=== PATIENT | male | born 1960 | race Caucasian/White ===

== ENCOUNTER 2018-05-09 16:56 | Emergency (ER) | payer MEDICARE ==
[2018-05-09 18:01] LABS: BASO % 0.4 % (0-6); GRAN % 68.4 % (47-80); HEMATOCRIT 47.2 % (42.0-52.0); HEMOGLOBIN 15.2 gm/dl (14.0-18.0); LYMPH % 22.3 % (16-45); MEAN CELL VOLUME 98.3 fl (81-97); MEAN CORPUSCULAR HEMOGLOBIN 31.7 pg (27-33); MEAN CORPUSCULAR HGB CONC 32.2 g/dl (32-36); MEAN PLATELET VOLUME 9.4 fl (7.4-10.4); MONO % 5.9 % (0-9); PLATELET COUNT 288 K/uL (130-400); RED CELL DISTRIBUTION WIDTH 13.6 % (11.5-14.5); WHITE BLOOD COUNT W/O DIFF 11.3 K/uL (4.2-12.2)
--- NOTE | 2018-05-09 18:04 | Emergency Department Record ---
History of Present Illness - General Chief Complaint: Neck Injury/Pain Stated Complaint: L SIDE NECK/HEAD PAIN Time Seen by Provider: 05/09/18 17:32 Source: Patient Mode of Arrival: Ambulatory Limitations: No limitations - History of Present Illness Initial Comments: The patient is here due to L posterior neck pain for about a month. The pain is intermittent and radiates over the top of his head at times. Twisting his head to the R exactly reproduces the pain. There is no arm or leg numbness, weakness , visual changes, difficulty swallowing or balance issues. The patient also had a brief feeling of "warm" across his chest just after dinner. It lasted possibly 1-2 minutes and was not associated with SOB, SABINE, sweating or nausea. Additionally the patient has had tingling to his hands and feet for years but has not seen his PCP for it. MD Complaint: Neck pain Onset/Timin -: Month(s) Place: Home Radiation: Other Severity: Moderate, Intermittent Severity scale (1-10): 6 Quality: Dull, Sharp Consistency: Intermittent Improves With: None Worsens With: Movement of neck Context: Unknown Associated Symptoms: Tingling Treatments Prior to Arrival: Prescription pain med - Related Data Home Medications Medication Instructions Recorded Confirmed Last Taken Gabapentin 3 cap PO QHS 05/09/18 05/09/18 05/08/18 Tiotropium [place] [Spiriva 2 puff .ROUTE DAILY 05/09/18 05/09/18 05/09/18 Respimat] Previous Rx's Medication Instructions Recorded Cyclobenzaprine HCl [Flexeril] 10 mg PO TID PRN #20 tablet 05/09/18 Naproxen [Naprosyn] 500 mg PO BID #14 tablet. 05/09/18 Allergies Allergy/AdvReac Type Severity Reaction Status Date / Time Penicillins Allergy PT UNSURE Verified 12/12/15 18:34 OF REACTION Travel Screening - Travel/Exposure Within Last 30 Days Have you traveled within the last 30 days?: No - Travel/Exposure Within Last Year Have you traveled outside the [place] in the last year?: No - Additonal Travel Details Have you been exposed to anyone with a communicable illness?: No - Travel Symptoms Symptom Screening: None Review of Systems Constitutional: Denies: Chills, Fever Eyes: Denies: Eye discharge ENT: Denies: Congestion Respiratory: Denies: Cough, Dyspnea Cardiovascular: Denies: Arrhythmia, Chest pain Past Medical History - SOCIAL HISTORY Smoking Status: Current every day smoker Alcohol Use: None Drug Use Detail:: Marijuana - RESPIRATORY Hx Respiratory Disorders: Yes Hx COPD: Yes - CARDIOVASCULAR Hx Cardio Disorders: Yes Hx Hypertension: Yes - NEURO Hx Neuro Disorders: No - GI Hx GI Disorders: No - Hx Genitourinary Disorders: No - ENDOCRINE Hx Endocrine Disorders: No - MUSCULOSKELETAL Hx Musculoskeletal Disorders: Yes Hx Arthritis: Yes - PSYCH Hx Psych Problems: Yes Hx Anxiety: Yes - HEMATOLOGY/ONCOLOGY Hx Hematology/Oncology Disorders: No Family Medical History Any Significant Family History?: Yes Hx Cancer: Grandparents Hx Diabetes: Mother Hx Heart Disease: Mother Hx Kidney Disease: Mother Hx Resp Disorders: Father Physical Exam - General General Appearance: Alert, Oriented x3, Cooperative, No acute distress - Head Head exam: Atraumatic, Normocephalic, Normal inspection Image of Face/Head: 1 - Area of pain and reproducible tenderness. 2 - Area of pain and reproducible tenderness. - Eye Eye exam: Normal appearance, PERRL, EOMI. negative: Conjunctival injection, Nystagmus - ENT ENT exam: Normal exam, Mucous membranes moist, Normal external ear exam, Normal orophraynx, TM's normal bilaterally Throat exam: Normal inspection. negative: Tonsillar erythema, Tonsillar exudate - Neck Neck exam: Normal inspection, Full ROM, Tenderness (Palpation of the L posterior trapezius muscle and SCM EXACTLY reproduces the patient's pain.) - Respiratory Respiratory exam: Normal lung sounds bilaterally. negative: Respiratory distress - Cardiovascular Cardiovascular Exam: Regular rate, Normal rhythm, Normal heart sounds - GI/Abdominal GI/Abdominal exam: Soft, Normal bowel sounds. negative: Tenderness - Extremities Extremities exam: Normal inspection, Full ROM, Normal capillary refill. negative: Tenderness - Neurological Neurological exam: Alert, CN II-XII intact, Normal gait, Oriented X3, Reflexes normal. negative: Abnormal gait, Altered, Motor sensory deficit Course Vital Signs 05/09/18 17:20 Temperature 97.9 F Pulse Rate 87 Respiratory 14 Rate Blood Pressure 116/76 Pulse Ox 97 - Reevaluation(s) Reevaluation #1: The patient is doing better at this time. He has no pain unless twisting his head to the R and there are no arm or leg symptoms of weakness or numbness. I did discuss the test results and the need for F/U with his PCP. 05/09/18 18:58 Reevaluation #2: On further physical examination it seems the patient does have a BP differential from the R to the L arm. He states this has been going on for years and is not new. He also states people in the past have had issues with getting his pulse in his L wrist for a long time. I did examine his pulses in the brachial area and the R is 2+ and the L is trace. I offered to send the patient to another hospital for a vascular study since we are unable to perform one here but he declined. He states this issue has CLEARLY been going on for some time and he would just like to see his PCP for it. He has a yearly PE coming up in the next 2 weeks so I suggested he try to move it up to this week and he did agree. 05/09/18 19:09 Reevaluation #3: I again did discuss the issues with the patient and the "warm" feeling that came across his chest 2 hours ago. He states it was not pain, pressure or tightness and was not exertional. The patient also has no hx of EVANS or CP with exertion. I did discuss what I felt could be causing his issue and due to the fact he has a hx of HTN, tobacco use, high cholesterol and possible a family hx of CAD I did recommend hospital admission. I explained that the feeling could be a warning sign of a heart attack even though he had a normal EKG. I then explained that because of all of those issues the safest course of action would be to admit him to the hospital to R/O [place] and for further cardiac testing. The patient is refusing the plan and would like to see his PCP for it. He also states he needs to take his for her chemo treatments tomorrow. I then explained to him that by NOT staying in the hospital he could go home and have an [place], stroke, become disabled and even . The patient understands and accepts the risks. He presently has proper decision making capacity and fully understands the risks of refusing. He was then instructed to see his PCP this week for recheck and I also will put a Cardiology consult in for him for F/U this week in the [facility]. 05/09/18 19:20 Medical Decision Making - Data Complexity MDM Data: Labs Ordered and/or Reviewed, X-Ray Ordered and/or Reviewed, EKG Ordered and/or Reviewed - Lab Data Result diagrams: 05/09/18 17:30 05/09/18 17:30 - EKG Data -: EKG Interpreted by Me EKG: No Acute Changes, Normal EKG - Radiology Data Radiology results: Report reviewed (Cspine: neg for acute dz. Multilevel DJD with foraminal narrowing. ) Disposition Disposition: Discharge Clinical Impression: Cervicalgia Disposition: Home, Self-Care Condition: (2) Stable Instructions: Cervical Sprain (ED) Additional Instructions: Please take the Naprosyn and Flexeril as directed and see your family doctor next week if not better. Return to the ER for any worsening symptoms or new issues. Prescriptions: Cyclobenzaprine HCl [Flexeril] 10 mg PO TID PRN #20 tablet PRN Reason: Pain Naproxen [Naprosyn] 500 mg PO BID #14 tablet. Referrals: [facility] [Provider Group] Forms: Patient Portal Access Time of Disposition: 19:02 Quality - Quality Measures Quality Measures: N/A - Blood Pressure Screening View Details: Yes Does Patient Have Any of the Following: Active Dx of HTN Blood Pressure Classification: Hypertensive Reading Systolic Measurement: 146 Diastolic Measurement: 79 Screening for High Blood Pressure: Patient Exclusion, Hx of HTN [G9744]
[2018-05-09 18:10] LABS: BLOOD UREA NITROGEN 16 mg/dL (6-20); CREATININE 0.9 mg/dL (0.7-1.2); EST GLOMERULAR FILTRATION RATE > 60 mL/min
[2018-05-09 18:13] LABS: GLUCOSE,RANDOM 130 mg/dL (74-109)
[2018-05-09 18:16] LABS: C-REACTIVE PROTEIN 0.29 mg/dL (<0.5)
[2018-05-09] MEDS ORDERED: KETOROLAC 30 MG/ML VIAL IVP ONE (18:20)
[2018-05-09] MEDS ORDERED: ORPHENADRINE CITRATE 60MG/2ML VIAL IM ONE (18:20)
[2018-05-09 18:35] LABS: ERYTHROCYTE SEDIMENTATION RATE 4 mm/hr (0-20)
--- NOTE | 2018-05-10 20:38 | RADIOLOGY REPORT ---
EXAM: CERVICAL SPINE Minimum 4 Views HISTORY: LEFT-SIDED NECK PAIN FOR THE PAST FEW MONTHS. WORSENING SYMPTOMS. NO KNOWN INJURY. TECHNIQUE: Six views of the cervical spine were obtained. COMPARISON: Previous CT scan of the cervical spine dated 03/08/2014. FINDINGS: There is normal cervical alignment. The craniocervical and cervicothoracic junctions are normal. There is no acute fracture, subluxation, or prevertebral soft tissue swelling. There is moderate disc space narrowing of the C6-7 level. Mild endplate degenerative changes and facet arthropathy are present throughout. There is moderate to severe right neural foraminal narrowing from the C3 through the C6 levels and mild to moderate narrowing at the right C6-7 level. There is moderate to severe narrowing of the left C3-4 neural foramen and mild narrowing of the left C4 through C7 neural foramina. IMPRESSION: 1. MULTILEVEL DEGENERATIVE DISC DISEASE AND FACET ARTHROPATHY WITH ASSOCIATED NEURAL FORAMINAL NARROWING. 2. NO ACUTE CERVICAL SPINE PATHOLOGY. 3. NOT MENTIONED ABOVE, BILATERAL CAROTID ARTERY CALCIFICATIONS ARE PRESENT. JOB NUMBER: [id number] [facility]
== END 2018-05-09 19:21 | disposition home or self-care (01) ==
LOC: ER 16:56
DX: M54.2 Cervicalgia (principal); R20.2 Paresthesia of skin; I10 Essential (primary) hypertension; J44.9 Chronic obstructive pulmonary disease, unspecified; F17.210 Nicotine dependence, cigarettes, uncomplicated
CPT/HCPCS: 99284 ×2; 96374; 96372; 85025; 85651; 86140; 80048; 72050; 93005; 93010; J1885; J2360